=== PATIENT | female | born 1965 | race African-American/Black ===

== ENCOUNTER 2018-11-13 00:55 | Emergency (ER) | payer MEDICAID ==
[~2018-11-13] VITALS: Ht 157.5 cm; Wt 81.8 kg
[~2018-11-13 00:55] MED LIST: ACET-2902 PO; AMLO10TA7 PO; ASPI81 PO; CARV12 PO; CITA-106 PO; DIPH25 PO; GABA-529 PO; ISOS60TA4 PO; LORA0.5T2 PO; OMEP20 PO; SIMV-260 PO; TRAZ-252 PO
[2018-11-13 01:09] LABS: GLUCOSE,POINT OF CARE 185 MG/DL (70-110)
[2018-11-13 02:13] LABS: BASOPHILS % (AUTO) 0.4 % (0.0-2.0); EOSINOPHILS % (AUTO) 0.2 % (1.0-6.0); HEMATOCRIT 47.3 % (36-46); HEMOGLOBIN 15.5 g/dL (12.0-16.0); LYMPHOCYTES # (AUTO) 2.2 K/uL (1.0-4.8); LYMPHOCYTES % (AUTO) 17.8 % (22.0-44.0); MEAN CORPUSCULAR HGB CONC 32.8 G/dL (31.0-37.0); MEAN CORPUSCULAR VOLUME 88 fL (80-100); MONOCYTES # (AUTO) 0.8 K/uL (0.1-1.0); MONOCYTES % (AUTO) 6.1 % (2.0-9.0); NEUTROPHILS # (AUTO) 9.5 K/uL (1.8-7.7); NEUTROPHILS % (AUTO) 75.5 % (40.0-70.0); PLATELET COUNT (AUTO) 331 K/uL (150-450); RED BLOOD CELL COUNT(AUTO) 5.36 MIL/uL (4.00-5.20); RED CELL DISTRIBUTION WIDTH 16.6 % (11.5-14.5)
[2018-11-13 02:22] LABS: ANION GAP 21 mmol/L (8-16); CALCIUM, TOTAL 11.1 mg/dL (8.8-10.5); CARBON DIOXIDE 19 mmol/L (22-29); CHLORIDE 102 mmol/L (98-107); CREATININE 2.07 mg/dL (0.60-1.30); GLOMERULAR FILTR. RATE CALC 30 mL/min (>60); GLUCOSE,RANDOM 225 mg/dL (70-110); POTASSIUM 3.4 mmol/L (3.5-5.1); SODIUM SERUM 142 mmol/L (136-145); UREA NITROGEN, BLOOD 36 mg/dL (7-18)
[2018-11-13 02:28] LABS: ALANINE AMINOTRANSFERASE 41 U/L (12-78); ALBUMIN 4.2 g/dL (3.4-5.0); ALKALINE PHOSPHATASE 143 U/L (46-116); ASPARTATE AMINOTRANSFERASE 111 U/L (15-37); TOTAL PROTEIN, SERUM 9.4 g/dL (6.4-8.2)
[2018-11-13] MEDS ORDERED: NICARDipine 20 MG/DEXT,ISO-OSM 200 ML IV PRN (02:45)
[2018-11-13] MEDS ORDERED: NITROPRUSSIDE SODIUM 50 MG in DEXTROSE 5%-WATER 248 ML IV PRN (03:15)
[2018-11-13 03:41] LABS: PROTHROMBIN TIME 10.1 SEC (9.4-11.6)
[2018-11-13] MEDS ORDERED: HydrOXYzine HCL 25 MG TABLET PO ONE (03:45)
[2018-11-13 03:51] LABS: B-TYPE NATRIURETIC PEPTIDE 160 pg/mL (0-100)
[2018-11-13 04:05] LABS: CREATINE KINASE, TOTAL ONLY 2719 U/L (26-192)
[2018-11-13] MEDS ORDERED: HEPARIN SODIUM 25000 UNITS/D5W 250 ML IV PRN (04:15)
[2018-11-13] MEDS ORDERED: HEPARIN SODIUM,PORCINE 5,000 UNITS/ML VIAL IVP ONE (04:15)
[2018-11-13] MEDS ORDERED: ONDANSETRON HCL 4 MG/2 ML VIAL IVP ONE (04:30)
[2018-11-13] MEDS ORDERED: MORPHINE SULFATE 4 MG/ML SYRINGE IVP ONE (04:30)
[2018-11-13 04:42] VITALS: BP 222/150
[2018-11-13] MEDS ORDERED: HEPARIN SODIUM,PORCINE 5,000 UNITS/ML VIAL IVP PRN ×2 (04:45)
[2018-11-13] MEDS ORDERED: ASPIRIN 325 MG TABLET PO ONE (04:45)
[2018-11-13] MEDS ORDERED: NITROGLYCERIN 2% (1 GM=INCH) PACKET TP ONE ×2 (04:50→05:00)
== END 2018-11-13 04:45 | disposition short-term general hospital (02) ==
LOC: EMS 00:59
DX: I21.3 ST elevation (STEMI) myocardial infarction of unspecified site (principal); I10 Essential (primary) hypertension; E78.00 Pure hypercholesterolemia, unspecified; F41.9 Anxiety disorder, unspecified; I25.2 Old myocardial infarction; F12.90 Cannabis use, unspecified, uncomplicated; Z88.5 Allergy status to narcotic agent; Z88.8 Allergy status to other drugs, medicaments and biological substances; Z79.82 Long term (current) use of aspirin; Z79.899 Other long term (current) drug therapy
CPT/HCPCS: 36415; 71045; 80053; 82550; 82962; 83880; 84484; 85025; 85610; 85730; 93005; 96374; 96375; 99291; G0480; J1644 ×2; J2270; J2405; J3490; J7060